=== PATIENT | female | born 1990 | race Caucasian/White ===

== ENCOUNTER 2020-02-23 07:03 | Inpatient (IN) | payer BC ==
[~2020-02-23] VITALS: Ht 165.1 cm; Wt 80.9 kg
[2020-02-23] VITALS (31 sets, daily range): BP systolic 88–121; BP diastolic 50–73; PULSE 75–107; TEMP 97.8–98.3
--- NOTE | 2020-02-23 07:00 | NUR ---
0700- Patient ambulatory to the floor with at her side. Patient currently aicha and having to stop and breath through the contractions. Patient changed into gown. 0705- EFM's were put on and tracing. Patient reports GFM, no leakage of fluid, and no bloody show. 0708- SVE by Peterson Oliveira RN 5-6/75/-2. Patient requesting epidural. 0718- IV started, labs drawn and IVF bolus started.
[2020-02-23] MEDS ORDERED: PRENATAL TABLET PO (07:43)
[2020-02-23 08:09] LABS: BASO % 0.2 % (0.0-2.0); EOS % 0.1 % (0-4.0); GRAN # 12.3 (1.4-6.5); GRAN % 78.5 % (42.2-75.2); HEMOGLOBIN 11.9 g/dl (12.5-16.0); LYMPH # 2.2 (1.2-3.4); LYMPH % 14.3 % (20.0-51.0); MEAN CELL VOLUME 84 fl (80.0-100.0); MEAN CORPUSCULAR HEMOGLOBIN 27 pg (27.0-31.0); MEAN CORPUSCULAR HGB CONC 32 g/dl (33.0-37.0); MEAN PLATELET VOLUME 11.6 fl (7.4-10.4); MONO # 0.9 (0.1-0.6); MONO % 5.9 % (1.7-9.3); PLATELET COUNT 264 K/mm3 (130-400); RED BLOOD COUNT 4.39 M/mm3 (4.10-5.30); REDCELL DISTRIBUTION WIDTH-CV 14.3 % (11.5-14.5)
[2020-02-23 08:23] LABS: HEMATOCRIT 36.7 % (37.0-47.0)
--- NOTE | 2020-02-23 09:45 | NUR ---
0938- DR. BREEN AT THE BEDSIDE. DISCUSSES PLAN OF CARE. 0939- AROM, CLEAR ODORLESS FLUID NOTED. SVE 5-6/80/-2.
--- NOTE | 2020-02-23 11:41 | NUR ---
1135- DR. BREEN TO BEDSIDE. SVE . PATIENT AND ROOM PREPPED FOR DELIVERY. NURSERY NURSES TO BEDSIDE FOR DELIVERY. 1138- PT. BEGINS PUSHING WITH UC. 1141- DELIVERY OF VIABLE FEMALE , TENDED TO BY NURSERY STAFF. PITOCIN OFF. 1147- SPONTANEOUS DELIVERY OF PLACENTA. PITOCIN RESTARTED AT 333ML/HR. FUNDAS MASSAGED TO FIRM BY . ESHA CARE PROVIDED, ICEPACK AND CLEAN CHUX PLACED UNDER PATIENT. 1200- PATIENT DOING WELL. BABY SKIN TO SKIN WITH MOTHER. CALL LIGHT WITHIN REACH.
--- NOTE | 2020-02-23 15:15 | NUR ---
1515- Pt ambulates to bathroom with standby assist x2. Voids 300ml. Pericare completed and explained. Peripad and underwear on. Pt changes into own gown. Pt ambulates to PP room independently with family and this RN. Oriented to room. Denies pain. Call light within reach.
[2020-02-24 00:20] VITALS: BP 106/69; PULSE 73; TEMP 97.8
[2020-02-24 03:40] VITALS: BP 112/73; PULSE 84; TEMP 97.8
[2020-02-24 07:45] VITALS: BP 105/71; PULSE 77; TEMP 97.6
[2020-02-24 12:00] VITALS: BP 107/74; PULSE 74; TEMP 98.1
== END 2020-02-24 13:30 | disposition home or self-care (01) | DRG 807 ==
LOC: LDRO 07:03 → LDR 07:04 → OB 15:15 → LDRO 17:09 → OB 02-24 13:30 → LDRO 02-27 06:46
PROVIDERS: ADMIT Student in an Organized Health Care Education/Training Program
PROC: 10E0XZZ Delivery of Products of Conception, External Approach (ICD-10-PCS; principal; 2020-02-23)
PROC: 10907ZC Drainage of Amniotic Fluid, Therapeutic from Products of Conception, Via Natural or Artificial Opening (ICD-10-PCS; 2020-02-23)
DX: O80 Encounter for full-term uncomplicated delivery (principal); Z37.0 Single live birth; Z3A.40 40 weeks gestation of pregnancy; Z3A.39 39 weeks gestation of pregnancy
CPT/HCPCS: J2590; J2795; J7120

== ENCOUNTER → 2020-07-04 | Outpatient (CLI) | payer BC ==
[~2020-07-04] MED LIST: PRENATAL TABLET PO
--- NOTE | 2020-07-04 12:11 | NUR ---
Pt, Mely Hill, presents for assistance with teaching 4 month old baby girl, Nury Hill to take a bottle. She is also accompanied by her , Joe Hill. This family has been trying to work with bottle feeding for a few weeks but baby is resistant thus far. LC tried several approaches without success, infant eventually breastfed. Pt will continue to work with ideas. Questions invited and answered.
== END ==
LOC: LAC 07-03 13:17
DX: Z39.1 Encounter for care and examination of lactating mother (principal); Z71.89 Other specified counseling